=== PATIENT | male | born 1960 | race Caucasian/White ===

== ENCOUNTER 2020-07-19 11:33 | Emergency (ER) | payer BC ==
[2020-07-19] MEDS ORDERED: fentaNYL 100 MCG/2 ML SDV IM ONE (11:51)
--- NOTE | 2020-07-19 12:08 | CR ---
PROCEDURE INFORMATION: Exam: XR Left Finger(s) Exam date and time: 07/19/2020 11:57 AM Age: 60 years old Clinical indication: Injury or trauma; Initial encounter; Injury date: Today; Injury details: Proximal interphalangeal joint left index finger laceration from a saw TECHNIQUE: Imaging protocol: XR Left fingers. Views: Minimum 2 views. COMPARISON: No relevant prior studies available. FINDINGS: Bones/joints: Mild degenerative changes are present within the interphalangeal joint. Soft tissues: Soft tissue injury is present without underlying foreign body. IMPRESSION: 1. Soft tissue injury without underlying fracture or foreign body.
[2020-07-19] MEDS ORDERED: Lidocaine 1% 30 ML SDV INJECT ONE (12:09)
[2020-07-19] MEDS ORDERED: Diphtheria,Pertussis(Acell),Tetanus Vaccine 0.5 ML SDV IM ONE (12:43)
[2020-07-19] MEDS ORDERED: Bacitracin Oint 1 GM U/D Packet TOP ONE (12:43)
--- NOTE | 2020-07-19 13:01 | EDM.PDOC ---
Scribed by Ely Stockton 07/19/20 1256 for Kym Zimmer MD ED HPI GENERAL MEDICAL PROBLEM - General Chief Complaint: Upper Extremity Injury/Pain Stated Complaint: [id number] CUT LEFT HAND Time Seen by Provider: 07/19/20 11:45 Source of Information: Reports: Patient, RN, RN Notes Reviewed History Limitations: Reports: No Limitations - History of Present Illness INITIAL COMMENTS - FREE TEXT/NARRATIVE: Patient presents to ED stating that he was using a band saw when he slipped and cut his right index finger. This happened about half an hour ago. He noted some numbness in his finger that he noted immediately. Onset: Today Duration: Constant Location: Reports: Lower Extremity, Left Quality: Reports: Ache Severity: Moderate Improves with: Reports: None Worsens with: Reports: None Associated Symptoms: Reports: No Other Symptoms Left Finger-Index Pain Score (Numeric/FACES): 9 - Related Data Allergies Allergy/AdvReac Type Severity Reaction Status Date / Time shellfish derived Allergy Intermediate DIARRHEA, Verified 07/19/20 11:50 NAUSEA AND VOMITING allopurinol Allergy UNKNOWN Verified 07/19/20 11:50 choline fenofibrate Allergy UNKNOWN Verified 07/19/20 11:50 [From Trilipix] colesevelam [From WelChol] Allergy UNKNOWN Verified 07/19/20 11:50 hydrochlorothiazide Allergy UNKNOWN Verified 07/19/20 11:50 Past Medical History - Past Health History Medical/Surgical History: Denies Medical/Surgical History Social & Family History - Tobacco Use Smoking Status *Q: Never Smoker - Caffeine Use Caffeine Use: Reports: None - Recreational Drug Use Recreational Drug Use: No Review of Systems - Review of Systems Review Of Systems: Comprehensive ROS is negative, except as noted in HPI. ED EXAM, GENERAL - Physical Exam Exam: See Below Exam Limited By: No Limitations General Appearance: Alert, WD/WN, No Apparent Distress Ears: Normal External Exam Respiratory/Chest: No Respiratory Distress, No Accessory Muscle Use Cardiovascular: Normal Peripheral Pulses, Regular Rate, Rhythm GI/Abdominal: Soft, Non-Tender Neurological: Alert, Oriented, Normal Cognition, Normal Gait Psychiatric: Normal Affect, Normal Mood Skin Exam: Wound/Incision (left index finger, about 3 cm in length. explored, no foreign body identified) ED TRAUMA EXTREMITY PROCEDURES - Laceration/Wound Repair Left Digit - 2nd (Index) Appearance: Subcutaneous Distal NVT: Neuro & Vascular Intact Anesthetic Type: Local Local Anesthesia - Lidocaine (Xylocaine): 1% Plain Local Anesthetic Volume: Other (8 cc) Skin Prep: Chlorhexidine (Hibiciens) Exploration/Debridement/Repair: Wound Explored, No Foreign Material Found Closed With: Sutures Suture Size: 4-0 # of Sutures: 6 Suture Type: Prolene, Interrupted Drain Placement: No Sterile Dressing Applied: Nurse Tetanus Status Addressed: Yes Complications: No Course - Vital Signs Last Recorded V/S: Last Vital Signs Temp 96.0 F L 07/19/20 11:46 Pulse 77 07/19/20 11:46 Resp 16 07/19/20 11:46 BP 120/60 07/19/20 11:46 Pulse Ox 98 07/19/20 11:46 - Orders/Labs/Meds Orders: Active Orders 24 hr Category Date Time Status Vaccines to be Administered [RC] PER UNIT ROUTINE Care 07/19/20 12:43 Ordered Meds: Medications Discontinued Medications Generic Name Dose Route Start Last Admin Trade Name Rachidq PRN Reason Stop Dose Admin Bacitracin 1 dose 07/19/20 12:43 07/19/20 12:51 Bacitracin Oint 1 Gm TOP 07/19/20 12:44 1 dose ONETIME ONE Administration Diphtheria/Tetanus/Acell Pertussis 0.5 ml 07/19/20 12:43 07/19/20 12:51 Adacel IM 07/19/20 12:44 0.5 ml .ONCE ONE Administration Fentanyl 50 mcg 07/19/20 11:51 07/19/20 12:01 Sublimaze IM 07/19/20 11:52 50 mcg ONETIME ONE Administration Lidocaine HCl 30 ml 07/19/20 12:09 07/19/20 12:13 Xylocaine-Mpf 1% INJECT 07/19/20 12:10 30 ml ONETIME ONE Administration Departure - Departure Time of Disposition: 12:58 Disposition: Home, Self-Care 01 Condition: Good Clinical Impression: Laceration of finger of left hand Qualifiers: Encounter type: initial encounter Finger: index finger Damage to nail status: without damage Foreign body presence: without foreign body Qualified Code(s): S61.211A - Laceration without foreign body of left index finger without damage to nail, initial encounter - Discharge Information *PRESCRIPTION DRUG MONITORING PROGRAM REVIEWED*: Not Applicable *COPY OF PRESCRIPTION DRUG MONITORING REPORT IN PATIENT TRACIE: Not Applicable Instructions: Wound Care, Adult Forms: ED Department Discharge, ED Return to Work/School Form Sepsis Event Note (ED) - Evaluation Sepsis Screening Result: No Definite Risk - Focused Exam Vital Signs: Vital Signs Temp Pulse Resp BP Pulse Ox 07/19/20 11:46 96.0 F L 77 16 120/60 98 - My Orders Last 24 Hours: My Active Orders 07/19/20 12:43 Vaccines to be Administered [RC] PER UNIT ROUTINE - Assessment/Plan Last 24 Hours: My Active Orders 07/19/20 12:43 Vaccines to be Administered [RC] PER UNIT ROUTINE Assessment:: 60 yo male with laceration to left index finger by angélica leal Plan: sutured in the clinic discussed wound care augmentin BID for 10 days fu with PCP in 7-10 days for suture removal I have read and agree with the documentation that has been completed regarding this visit. By signing this record, I attest that the documentation was completed in my physical presence and is an accurate record of the encounter.
== END 2020-07-19 13:06 | disposition home or self-care (01) ==
LOC: DL.ED 11:33
DX: S61.211A Laceration without foreign body of left index finger without damage to nail, initial encounter (principal); Z91.09 Other allergy status, other than to drugs and biological substances; Z91.013 Allergy to seafood; Z88.8 Allergy status to other drugs, medicaments and biological substances; Z23 Encounter for immunization; W31.2XXA Contact with powered woodworking and forming machines, initial encounter
CPT/HCPCS: 12002; 73140; 90471; 90715; 96372; 99283; J2001; J3010

== ENCOUNTER 2021-04-27 11:51 | Emergency (ER) | payer BC ==
[2021-04-27] MEDS ORDERED: Lidocaine 1% 30 ML SDV INJECT ONE (12:11)
[2021-04-27] MEDS ORDERED: Bacitracin Oint 1 GM U/D Packet TOP ONE (12:11)
[2021-04-27] MEDS ORDERED: cefTRIAXone 1 GM, Lidocaine 1% 2.1 ML IM ONE ×2 (13:08)
--- NOTE | 2021-04-27 13:11 | EDM.PDOC ---
ED HPI GENERAL MEDICAL PROBLEM - General Chief Complaint: Laceration Stated Complaint: SEVERE LACERATION RIGHT ARM Time Seen by Provider: 04/27/21 12:10 Source of Information: Reports: Patient, RN, RN Notes Reviewed History Limitations: Reports: No Limitations - History of Present Illness INITIAL COMMENTS - FREE TEXT/NARRATIVE: Geremias is a 61 y/o male who presents to the ED via personal vehicle with complaints of laceration to his right lateral, posterior elbow. The patient reports he was attempting to remove piece of metal from inside his chimney and lacerated his arm in the process. He denies loss of motor or sensory function to the extremity. He states he is up to date on his tetanus vaccine as he received it in May 2020. Right Arm Pain Score (Numeric/FACES): 3 - Related Data Allergies Allergy/AdvReac Type Severity Reaction Status Date / Time shellfish derived Allergy Intermediate DIARRHEA, Verified 04/27/21 12:05 NAUSEA AND VOMITING allopurinol Allergy UNKNOWN Verified 04/27/21 12:05 choline fenofibrate Allergy UNKNOWN Verified 04/27/21 12:05 [From Trilipix] colesevelam [From WelChol] Allergy UNKNOWN Verified 04/27/21 12:05 hydrochlorothiazide Allergy UNKNOWN Verified 04/27/21 12:05 Home Meds: Home Meds . [Unable to Verify Home Med List] 04/27/21 [History] Past Medical History - Past Health History Medical/Surgical History: Denies Medical/Surgical History HEENT History: Reports: None Cardiovascular History: Reports: Hypertension Respiratory History: Reports: None Gastrointestinal History: Reports: None Genitourinary History: Reports: None Musculoskeletal History: Reports: Arthritis Neurological History: Reports: None Psychiatric History: Reports: None Endocrine/Metabolic History: Reports: Diabetes, Type II Hematologic History: Reports: None Immunologic History: Reports: None Oncologic (Cancer) History: Reports: Non-Hodgkin's Lymphoma Dermatologic History: Reports: None - Infectious Disease History Infectious Disease History: Reports: None - Past Surgical History Head Surgeries/Procedures: Reports: None Social & Family History - Tobacco Use Tobacco Use Status *Q: Never Tobacco User - Caffeine Use Caffeine Use: Reports: Coffee, Tea - Recreational Drug Use Recreational Drug Use: No ED ROS GENERAL - Review of Systems Review Of Systems: Comprehensive ROS is negative, except as noted in HPI. ED EXAM, SKIN/RASH Exam: See Below Exam Limited By: No Limitations General Appearance: Alert, No Apparent Distress Eye Exam: Bilateral Eye: EOMI, Normal Inspection, PERRL (3mm) Throat/Mouth: Normal Inspection, Normal Oropharynx, Normal Voice, No Airway Compromise Head: Atraumatic, Normocephalic Respiratory/Chest: No Respiratory Distress, Lungs Clear, Normal Breath Sounds, No Accessory Muscle Use, Chest Non-Tender Cardiovascular: Normal Peripheral Pulses, Regular Rate, Rhythm, No Edema, No Gallop, No JVD, No Murmur, No Rub Peripheral Pulses: 2+: Radial (L), Radial (R) Extremities: Normal Range of Motion, No Pedal Edema, Normal Capillary Refill, Arm Pain (To right ). No: Mottled, Pallor, Redness Neurological: Alert, Oriented, CN II-XII Intact, Normal Cognition, Normal Gait, No Motor/Sensory Deficits Psychiatric: Normal Affect, Normal Mood Skin: Warm, Dry, Normal Color, No Rash, Wound/Incision (9cm laceration to right lateral, posterior lower arm). No: Cyanosis, Ecchymosis, Erythema, Increased Warmth, Jaundice, Mottled, Pallor, Petechiae Location, Skin: Upper Extremity, Right Characteristics: Other Associated features: Tenderness. No: Warmth, Swelling, Induration, Scaling, Lymphangitis, Inflammation, Crusting, Weeping ED SKIN PROCEDURES - Laceration/Wound Repair Right Lower Mid-Posterior Arm Appearance: Superficial Distal NVT: Neuro & Vascular Intact, No Tendon Injury Anesthetic Type: Local Local Anesthesia - Lidocaine (Xylocaine): 1% Plain Local Anesthetic Volume: Other (10) Skin Prep: Chlorhexidine (Hibiciens), Saline, Sterile Drape Exploration/Debridement/Repair: Wound Explored, In a Bloodless Field, Explored to Base, No Foreign Material Found, Wound Margins Revised Closed with: Sutures Lac/Wound length In cm: 9 Suture Size: 4-0 # of Sutures: 17 Suture Type: Prolene Drain Placement: No Sterile Dressing Applied: Nurse Tetanus Status Addressed: Yes Complications: No Course - Vital Signs Last Recorded V/S: Last Vital Signs Temp 98.0 F 04/27/21 11:57 Pulse 90 04/27/21 11:57 Resp 18 04/27/21 11:57 BP 125/60 04/27/21 11:57 Pulse Ox 98 04/27/21 11:57 - Orders/Labs/Meds Meds: Medications Discontinued Medications Generic Name Dose Route Start Last Admin Trade Name Ashley PRN Reason Stop Dose Admin Bacitracin 1 dose 04/27/21 12:11 04/27/21 12:20 Bacitracin Oint 1 Gm U/D Packet TOP 04/27/21 12:12 1 dose ONETIME ONE Administration Ceftriaxone Sodium 1 gm/ 0 gm 04/27/21 13:08 04/27/21 13:15 Lidocaine HCl 2.1 ml IM 04/27/21 13:09 1 inj ONETIME ONE Administration Lidocaine HCl 30 ml 04/27/21 12:11 04/27/21 12:21 Lidocaine 1% 30 Ml Sdv INJECT 04/27/21 12:12 30 ml ONETIME ONE Administration - Re-Assessments/Exams Free Text/Narrative Re-Assessment/Exam: 04/27/21 Right arm sutured without complication. Rocephin administered given size of laceration and material causing injury. Supportive cares reviewed with patient, as well as red flag signs and symptoms which would warrant reevaluation. Sutures to be removed in 10 days. Patient verbalized understanding and agreement with the plan of care. Departure - Departure Time of Disposition: 13:08 Disposition: Home, Self-Care 01 Condition: Good Clinical Impression: Laceration of right forearm without complication Qualifiers: Encounter type: initial encounter Qualified Code(s): S51.811A - Laceration without foreign body of right forearm, initial encounter - Discharge Information *PRESCRIPTION DRUG MONITORING PROGRAM REVIEWED*: Not Applicable *COPY OF PRESCRIPTION DRUG MONITORING REPORT IN PATIENT TRACIE: Not Applicable Instructions: Laceration Care, Adult Forms: ED Department Discharge Additional Instructions: 1.) Follow up with primary care provider in 10 days for suture removal. 2.) Keep wound clean a dry. No need to keep it covered if it is not draining, unless you are working (then a clean gauze with tape is best). 3.) Monitor for signs of infection to the wound; redness, hills drainage, increase in pain, significant swelling. Sepsis Event Note (ED) - Evaluation Sepsis Screening Result: No Definite Risk - Focused Exam Vital Signs: Vital Signs Temp Pulse Resp BP Pulse Ox 04/27/21 11:57 98.0 F 90 18 125/60 98
== END 2021-04-27 13:38 | disposition home or self-care (01) ==
LOC: DL.ED 11:51
DX: S51.811A Laceration without foreign body of right forearm, initial encounter (principal); I10 Essential (primary) hypertension; E11.9 Type 2 diabetes mellitus without complications; Z91.013 Allergy to seafood; Z88.8 Allergy status to other drugs, medicaments and biological substances; W26.8XXA Contact with other sharp object(s), not elsewhere classified, initial encounter
CPT/HCPCS: 12004; 96372; 99282-25; J0696

== ENCOUNTER 2024-03-05 18:15 | Emergency (ER) | payer BC ==
[2024-03-05 18:44] LABS: BASOPHILS PERCENT AUTO 0.9 % (0.0-1.0); EOSINOPHILS PERCENT AUTO 0.7 % (1.0-3.0); HEMATOCRIT 37.4 % (40.0-54.0); HEMOGLOBIN 12.6 g/dL (14.0-18.0); LYMPHOCYTES PERCENT AUTO 20.3 % (20.5-50.1); MEAN CORPUSCULAR HEMOGLOBIN 31.3 pg (27.0-34.0); MEAN CORPUSCULAR HGB CONC 33.7 g/dL (33.0-35.0); MEAN CORPUSCULAR VOLUME 92.8 fL (80-100); MONOCYTES PERCENT AUTO 29.9 % (2-8); NEUTROPHILS PERCENT AUTO 48.2 % (42.2-75.2); PLATELET COUNT,PLT 87 10^3/uL (150-450); RED BLOOD CELL COUNT 4.03 10^6/uL (4.6-6.2)
[2024-03-05] MEDS: Sodium Chloride 0.9% 1,000 ML IV ONE (18:59)
[2024-03-05] MEDS: Sodium Chloride 0.9% 10 ML Syringe FLUSH PRN (18:59)
[2024-03-05 19:00] LABS: A/G RATIO 0.8; ALANINE AMINOTRANSFERASE,ALT 38 U/L (16-63); ALBUMIN 3.4 g/dL (3.4-5.0); ALKALINE PHOSPHATASE 59 U/L (46-116); ANION GAP 13.5 mEq/L (7-13); ASPARTATE AMNIOTRANSFERASE,AST 35 U/L (15-37); BILIRUBIN TOTAL 0.9 mg/dL (0.2-1.0); BLOOD UREA NITROGEN,BUN 17 mg/dL (7-18); BUN/CREATININE RATIO 16.3 (No establ ref range); C-REACTIVE PROTEIN 13.28 ng/dL (<=0.50); CALCIUM 8.6 mg/dL (8.5-10.1); CARBON DIOXIDE,CO2 27 mmol/L (21-32); CHLORIDE,CL 99 mmol/L (98-107); CREATININE 1.04 mg/dL (0.70-1.30); GLUCOSE RANDOM 91 mg/dL (70-99); LIPASE 54 U/L (16-77); POTASSIUM,K 3.5 mmol/L (3.5-5.1); PROTEIN TOTAL,TP 7.5 g/dL (6.4-8.2); SODIUM,NA 136 mmol/L (136-145)
[2024-03-05 19:07] LABS: LACTIC ACID 1.1 mmol/L (0.4-2.0)
[2024-03-05 19:08] LABS: ESTIMATED GFR 80 mL/min (>=60)
[2024-03-05] MEDS: Iopamidol 612 MG/ML 100 ML Bottle IVPUSH ONE (19:44)
[2024-03-05 20:02] LABS: CORONAVIRUS COVID-19 NAA NEGATIVE (NEGATIVE); INFLUENZA A NAA NEGATIVE (NEGATIVE); INFLUENZA B NAA NEGATIVE (NEGATIVE)
[2024-03-05] MEDS: Piperacillin/Tazobactam 4.5 GM in Sodium Chloride 0.9% 100 ML IV ONE (20:42)
== END 2024-03-05 21:34 ==
LOC: DL.ED 18:15
DX: K35.80 Unspecified acute appendicitis (principal); I10 Essential (primary) hypertension; E11.9 Type 2 diabetes mellitus without complications; Z91.013 Allergy to seafood; Z88.8 Allergy status to other drugs, medicaments and biological substances
CPT/HCPCS: 0240U; 36415; 74177; 80053; 83605; 83690; 85025; 86140; 87040; 96365; 99285; 99285-25; J2543; J3490; J7030; Q9967

== ENCOUNTER 2025-05-24 10:38 | Emergency (ER) | payer MEDICARE, OTHER ==
[2025-05-24] MEDS: Iopamidol 612 MG/ML 100 ML Bottle IVPUSH ONE (11:04)
[2025-05-24 11:25] LABS: PLATELET COUNT,PLT 154 10^3/uL (150-450); RED BLOOD CELL COUNT 4.43 10^6/uL (4.6-6.2); WHITE BLOOD CELL COUNT,WBC 20.9 10^3/uL (5.0-10.0)
[2025-05-24] MEDS: Dicyclomine 20 MG/2 ML SDV IM ONE (11:26)
[2025-05-24 11:38] LABS: SEG NEUTROPHILS PERCENT MAN 70 % (42-75)
[2025-05-24 11:39] LABS: BAND PERCENT MAN 4 %; LYMPHOCYTES PERCENT MAN 8 % (20-50); MONOCYTES PERCENT MAN 18 % (2-8)
[2025-05-24] MEDS: metroNIDAZOLE/Normal Saline 500 MG in Premix Bag 1 BAG IV ONE (11:42)
[2025-05-24] MEDS: Lactated Ringers 1,000 ML IV SCH (11:42)
[2025-05-24 11:44] LABS: A/G RATIO 0.9; ALANINE AMINOTRANSFERASE,ALT 35.0 U/L (16-63); ASPARTATE AMNIOTRANSFERASE,AST 26.0 U/L (15-37); BILIRUBIN TOTAL 1.4 mg/dL (0.2-1.0); BLOOD UREA NITROGEN,BUN 56.0 mg/dL (7-18); CARBON DIOXIDE,CO2 30.0 mmol/L (21-32); CHLORIDE,CL 98.0 mmol/L (98-107); CREATININE 1.8 mg/dL (0.70-1.30); EST CRCL DRUG DOSING (CG) 44.91 mL/min; ESTIMATED GFR 41.0 mL/min (>=60); GLUCOSE RANDOM 387.0 mg/dL (70-99); POTASSIUM,K 3.7 mmol/L (3.5-5.1); PROTEIN TOTAL,TP 7.3 g/dL (6.4-8.2); SODIUM,NA 139.0 mmol/L (136-145)
[2025-05-24 11:58] LABS: LACTIC ACID 3.8 mmol/L (0.4-2.0)
[2025-05-24] MEDS: LORazepam 2 MG/ML SDV IVPUSH ONE (12:01)
[2025-05-24] MEDS: Ciprofloxacin in D5W 400 MG in Premix Bag 1 BAG IV ONE (13:38)
[2025-05-24] MEDS: Benzocaine 20% Topical Spray UD MUCMEM ONE (13:58)
== END 2025-05-24 17:48 | disposition other institution (70) ==
LOC: DL.ED 10:38
DX: K91.30 Postprocedural intestinal obstruction, unspecified as to partial versus complete (principal); I10 Essential (primary) hypertension; E11.9 Type 2 diabetes mellitus without complications; Z88.8 Allergy status to other drugs, medicaments and biological substances; Z91.013 Allergy to seafood
CPT/HCPCS: 36415; 43752; 71045; 74018; 74177; 80053; 83605; 85025; 87040; 93005; 93010; 96361; 96365; 96367; 96372; 96375; 99285; 99285-25; J0500; J0744; J1836; J2060; J2470; J7120; Q9967